=== PATIENT | male | born 1990 | race Caucasian/White ===

== ENCOUNTER 2020-12-10 15:15 | Emergency (ER) | payer SELFPAY | END 2020-12-10 20:00 | disposition left against medical advice (07) | LOC: ER1 15:15 | DX: R51.9 Headache, unspecified (principal); R11.2 Nausea with vomiting, unspecified; R19.7 Diarrhea, unspecified; R10.9 Unspecified abdominal pain; Z53.21 Procedure and treatment not carried out due to patient leaving prior to being seen by health care provider ==

== ENCOUNTER → 2020-12-14 | Outpatient (CLI) | payer OTHER ==
[~2020-12-14] MED LIST: AUGMENTIN 875-1 EACH PO; BENTYL 20MG TAB20 MG PO; CLARITIN10 MG PO; COLESTID1 GM PO; PEPCID20 MG PO; PROTONIX40 MG PO
[2020-12-14 16:30] LABS: HEMOGLOBIN 17.1 gm/dl (14.0-17.5); RED BLOOD COUNT 5.66 M/UL (4.20-5.50); WHITE BLOOD COUNT 13.5 K/UL (4.5-11.0)
== END ==
LOC: LAB 15:48
PROVIDERS: Nurse Practitioner Family
DX: K59.00 Constipation, unspecified (principal); R10.9 Unspecified abdominal pain
CPT/HCPCS: 36415; 85027

== ENCOUNTER 2021-05-03 07:38 | Inpatient (IN) | payer OTHER ==
[~2021-05-03] VITALS: Ht 182.9 cm; Wt 78.0 kg
[2021-05-03 08:26] LABS: HEMOGLOBIN 15.7 gm/dl (14.0-17.5); RED BLOOD COUNT 5.14 M/UL (4.20-5.50); WHITE BLOOD COUNT 16.8 K/UL (4.5-11.0)
[2021-05-03 08:55] LABS: BUN/CREATININE RATIO 16 (0-10)
[2021-05-03] MEDS ORDERED: CLARITIN10 MG PO (12:58)
[2021-05-03] MEDS ORDERED: COLESTID1 GM PO (12:58)
[2021-05-03] MEDS ORDERED: PROTONIX40 MG PO (12:58)
[2021-05-03] MEDS ORDERED: BENTYL 20MG TAB20 MG PO (12:58)
[2021-05-03] MEDS ORDERED: PEPCID20 MG PO (12:59)
[2021-05-04 03:50] LABS: HEMOGLOBIN 14.3 gm/dl (14.0-17.5); RED BLOOD COUNT 4.74 M/UL (4.20-5.50)
[2021-05-04 04:08] LABS: BUN/CREATININE RATIO 17 (0-10)
[2021-05-04 04:09] LABS: WHITE BLOOD COUNT 12.5 K/UL (4.5-11.0)
[2021-05-04] MEDS ORDERED: AUGMENTIN 875-1 EACH PO (17:33)
== END 2021-05-04 18:08 | disposition home or self-care (01) | DRG 392 ==
LOC: ER1 07:38 → CDU 11:28 → MED SURG 4 11:47
PROVIDERS: Physician Assistant; ADMIT Surgery
DX: K57.20 Diverticulitis of large intestine with perforation and abscess without bleeding (principal); K21.9 Gastro-esophageal reflux disease without esophagitis; J30.2 Other seasonal allergic rhinitis; Z90.49 Acquired absence of other specified parts of digestive tract; Z82.49 Family history of ischemic heart disease and other diseases of the circulatory system; Z79.899 Other long term (current) drug therapy
CPT/HCPCS: 80048; 80053; 81001; 83690; 85025; 99285; J1885; J2270; J2405; J2543; J3480; J7030; Q9967

== ENCOUNTER 2021-06-09 12:27 | Emergency (ER) | payer OTHER ==
[2021-06-09 13:40] LABS: HEMOGLOBIN 15.8 gm/dl (14.0-17.5); RED BLOOD COUNT 5.28 M/UL (4.20-5.50); WHITE BLOOD COUNT 9.4 K/UL (4.5-11.0)
[2021-06-09 14:00] LABS: BUN/CREATININE RATIO 12 (0-10)
[2021-06-09] MEDS ORDERED: FLAGYL500 MG PO (17:19)
[2021-06-09] MEDS ORDERED: CIPRO500 MG PO (17:19)
[2021-06-09] MEDS ORDERED: ZOFRAN ODT 4 MG4 MG PO (17:21)
== END 2021-06-09 17:34 | disposition home or self-care (01) ==
LOC: ER1 12:27
PROVIDERS: Nurse Practitioner
DX: R10.11 Right upper quadrant pain (principal); R10.31 Right lower quadrant pain; Z90.49 Acquired absence of other specified parts of digestive tract; F17.290 Nicotine dependence, other tobacco product, uncomplicated
CPT/HCPCS: 80053; 81001; 83605; 83690; 85025; 86140; 99284; Q9967

== ENCOUNTER → 2021-07-09 | Day surgery (SDC) | payer OTHER ==
[~2021-07-09] VITALS: Ht 182.9 cm; Wt 79.4 kg
[~2021-07-09] MED LIST changes: +CIPRO500 MG PO; +FLAGYL500 MG PO; +ZOFRAN ODT 4 MG4 MG PO
== END | disposition home or self-care (01) ==
LOC: OR 08:06
DX: K57.30 Diverticulosis of large intestine without perforation or abscess without bleeding (principal); F17.290 Nicotine dependence, other tobacco product, uncomplicated
CPT/HCPCS: J2704; J7030

== ENCOUNTER 2021-08-15 17:05 | Inpatient (IN) | payer OTHER ==
[~2021-08-15] VITALS: Ht 182.9 cm; Wt 79.4 kg
[2021-08-15 18:57] LABS: HEMOGLOBIN 16.5 gm/dl (14.0-17.5); RED BLOOD COUNT 5.44 M/UL (4.20-5.50); WHITE BLOOD COUNT 20.6 K/UL (4.5-11.0)
[2021-08-15 19:18] LABS: BUN/CREATININE RATIO 17 (0-10)
[2021-08-16 07:15] LABS: HEMOGLOBIN 14.6 gm/dl (14.0-17.5); WHITE BLOOD COUNT 24.6 K/UL (4.5-11.0)
[2021-08-16 07:35] LABS: RED BLOOD COUNT 4.83 M/UL (4.20-5.50)
[2021-08-16 07:40] LABS: BUN/CREATININE RATIO 12 (0-10)
[2021-08-16] MEDS ORDERED: DICYCLOMINE HCL20 MG PO (11:06)
[2021-08-16] MEDS ORDERED: FIBER GUMMIES-1 EACH PO (11:06)
[2021-08-16] MEDS ORDERED: IBU800 MG PO (11:07)
[2021-08-18 07:02] LABS: HEMOGLOBIN 12.8 gm/dl (14.0-17.5); RED BLOOD COUNT 4.33 M/UL (4.20-5.50); WHITE BLOOD COUNT 15.7 K/UL (4.5-11.0)
[2021-08-18 07:38] LABS: BUN/CREATININE RATIO 15 (0-10)
[2021-08-20 06:59] LABS: HEMOGLOBIN 13.7 gm/dl (14.0-17.5); RED BLOOD COUNT 4.6 M/UL (4.20-5.50); WHITE BLOOD COUNT 12.9 K/UL (4.5-11.0)
[2021-08-20 07:20] LABS: BUN/CREATININE RATIO 14 (0-10)
[2021-08-20] MEDS ORDERED: PERCOCET 5/325 T1 EA PO (11:18)
== END 2021-08-20 14:27 | disposition home or self-care (01) | DRG 853 ==
LOC: ER1 17:05 → M/S 22:43 → CDU 22:43 → M/S 08-16 00:34
PROVIDERS: Emergency Medicine; ADMIT Surgery
PROC: 0D1B0Z4 Bypass Ileum to Cutaneous, Open Approach (ICD-10-PCS; 2021-08-16)
PROC: 0DTJ0ZZ Resection of Appendix, Open Approach (ICD-10-PCS; 2021-08-16)
PROC: 0DBN0ZZ Excision of Sigmoid Colon, Open Approach (ICD-10-PCS; principal; 2021-08-16 07:30)
DX: A41.9 Sepsis, unspecified organism (principal); K65.9 Peritonitis, unspecified; K57.20 Diverticulitis of large intestine with perforation and abscess without bleeding; Z20.822 Contact with and (suspected) exposure to COVID-19; K21.9 Gastro-esophageal reflux disease without esophagitis; Z82.49 Family history of ischemic heart disease and other diseases of the circulatory system; Z90.49 Acquired absence of other specified parts of digestive tract
CPT/HCPCS: 36415; 71045; 80048; 80053; 83605; 83690; 83735; 84100; 85025; 87040; 96365; 96375; 99285; J0131; J1100; J1170; J1885; J2001; J2250; J2405; J2543; J2704; J2710; J3010; J3480; J7030; J7120; Q9967; U0002

== ENCOUNTER → 2021-10-22 | Outpatient (CLI) | payer OTHER ==
[~2021-10-22] MED LIST changes: +DICYCLOMINE HCL20 MG PO; +FIBER GUMMIES-1 EACH PO; +IBU800 MG PO; +PERCOCET 5/325 T1 EA PO
== END ==
LOC: RAD 08:50
DX: Z93.2 Ileostomy status (principal)
CPT/HCPCS: 74270

== ENCOUNTER 2021-11-08 05:36 | Inpatient (IN) | payer OTHER ==
[~2021-11-08] VITALS: Ht 185.4 cm; Wt 81.2 kg
[2021-11-09] MEDS ORDERED: HYDROCODON-ACE1 EAC2 PO (14:17)
--- NOTE | 2021-11-10 00:49 | NUR ---
PT HAD 2 SMALL BOWEL MOVEMENTS THIS AM.
== END 2021-11-10 12:50 | disposition home or self-care (01) | DRG 331 ==
LOC: OR 05:36 → MED SURG 4 12:44
PROVIDERS: ADMIT Surgery
PROC: 0DBB0ZZ Excision of Ileum, Open Approach (ICD-10-PCS; principal; 2021-11-08 09:30)
DX: Z43.2 Encounter for attention to ileostomy (principal); F17.290 Nicotine dependence, other tobacco product, uncomplicated; Z20.822 Contact with and (suspected) exposure to COVID-19; Z79.899 Other long term (current) drug therapy; Z90.49 Acquired absence of other specified parts of digestive tract
CPT/HCPCS: 82962; J0690; J1100; J2001; J2250; J2270; J2405; J2704; J2710; J3010; J7120